=== PATIENT | male | born 1975 | race Caucasian/White ===

== ENCOUNTER 2023-11-07 07:39 | Outpatient (OUT) | payer BC, SELFPAY | END 2023-11-07 07:40 | disposition home or self-care (01) | LOC: PST 07:40 | PROVIDERS: Visit Provider Surgery | DX: Z01.818 Encounter for other preprocedural examination (principal); Z12.11 Encounter for screening for malignant neoplasm of colon ==

== ENCOUNTER 2023-11-15 06:47 | Day surgery (SDC) | payer BC, SELFPAY ==
--- NOTE | 2023-11-15 | OP_ITS ---
OPERATION DATE: 11/15/2023 PREOPERATIVE DIAGNOSIS: Colorectal screening. POSTOPERATIVE DIAGNOSIS: Normal colonoscopy to cecum. PROCEDURE: Colonoscopy to cecum. SURGEON: Edvin Kaur M.D. ANESTHESIA: Monitored anesthesia care. ESTIMATED BLOOD LOSS: Zero. INDICATIONS AND CONSENT: Patient is a 48-year-old male presents for colorectal screening. Indications, risks, benefits, alternatives of proceeding with colonoscopy were explained extensively to the patient, including the risks of bleeding, colon perforation or anesthetic complications. All of his questions were answered. Informed consent was obtained. PROCEDURE: Patient brought to the operating room, placed in the left lateral decubitus position. Monitored anesthesia care was provided. Rectal exam was performed which showed no masses or blood. The scope was inserted into the anal canal. Under direct visualization was advanced. With the aid of abdominal compression, it was advanced to the cecum where cecal markings were clearly identified. Upon withdrawal of the scope, mucosal surfaces were carefully examined. There was noted to be a good prep. There were no mass lesions or polyps. No inflammatory changes or ulcerations. No significant diverticulosis. The scope was retroflexed in the anal canal. There was no significant hemorrhoidal disease. Scope was then withdrawn. Patient tolerated procedure well, was sent to recovery room in good condition. follow up screening colonoscopy should be in 10 years. CC: Patient?s family physician KAMI
--- OUTSIDE RECORDS SUMMARY | 2023-11-15 06:52 | XMS_ITS | CCD ---
Author Organization [facility] [employer] [facility] [employer] [facility] Care Team Providers Care Family And Consumer Science Professor Name Role Phone Erin Vazquez Edin Primary Care Physician Edvin Hancock Attending Unavailable Juan Francisco SOSA Attending Unavailable Juan Francisco SOSA Attending Unavailable Edvin CORREIA Attending Unavailable Edvin Hancock Admitting Unavailable Edvin Hancock Attending Unavailable Allergies Allergy Classification Reported Allergen(s) Allergy Type Date of Onset Reaction(s) Facility (4 sources) Aspirin; Translations: [aspirin] Drug Allergy Eye swelling (finding) [facility] Medications Current Medications Medication Drug Class(es) Dates Sig (Normalized) Sig (Original) minocycline 50 mg oral capsule (1 source) Tetracycline-clas s Drug Start: 09-18-2023 take 1 capsule by mouth once daily as needed minocycline 50 mg Cap 50 mg = 1 cap(s), Oral, Daily, PRN rosacea, Refills(s) 0 Start Date: 09/18/23 Status: Ordered Multi Vitamins oral tablet (1 source) Start: 09-18-2023 take 1 tablet by mouth once daily Multi Vitamins oral tablet 1 tab(s), Oral, Daily, Refill(s) 0 Start Date: 09/18/23 Status: Ordered Problems Problem Classification Problem Date Documented Da te Episodic/Chronic Other gastrointestinal disorders (1 source) Irritable bowel syndrome 09-18-2023 Chronic Other inflammatory condition of skin (1 source) Rosacea 09-18-2023 Chronic Other nutritional; endocrine; and metabolic disorders (1 source) Overweight 09-13-2023 Episodic Other nutritional; endocrine; and metabolic disorders (1 source) Overweight in adulthood with body mass index of 25 or more but less than 30 09-18-2023 Episodic Other screening for suspected conditions (not mental disorders or infectious disease) (1 source) Screening for malignant neoplasm of colon done; Translations: [Encounter for screening for malignant neoplasm of colon] Onset: 09-18-2023 Episodic Other upper respiratory infections (1 source) Acute pharyngitis; Translations: [Acute pharyngitis, unspecified] Onset: 08-29-2023 Episodic Unclassified (1 source) Patient encounter status 09-18-2023 Viral infection (1 source) Viral disease; Translations: [Viral infection, unspecified] Onset: 08-29-2023 Episodic Results Test Name Value Interpretation Reference Range Facility Insurance Correspondenceon 0 11-03-2023 Insurance Correspondence [id number]# 1.00TIFF [facility] Ambulatory Visit Summaryon 0 09-18-2023 Ambulatory Visit Summary DAVIDA SHARMA :1975 Visit Date:09/18/2023 Ambulatory Visit Instructions Your Diagnosis Screening for malignant neoplasm of colon Your Care Team Attending Physician - MASOOD GO, Edvin Rae Primary Care Physician - Erin Vazquez DO This Is Your Medications List Contact prescribing physician if questions or concerns minocycline (minocycline 50 mg Cap) multivitamin (Multi Vitamins oral tablet) Procedures Performed Colonoscopy, Colonoscopy. Discharge Vitals Heart Rate (Peripheral) 88 Respiratory Rate 16 Blood Pressure 126/80 Height 178 cm Height 70 in Weight 87.1 kg Weight 191.62 lb BMI 27.49 Medications What How Much When Instructions Unchanged minocycline (minocycline 50 mg Cap) 1 Capsules By Mouth Every day as needed for rosacea Contact prescribing physician if questions or concerns Unchanged multivitamin (Multi Vitamins oral tablet) 1 Tablets By Mouth Every day Contact prescribing physician if questions or concerns Allergies aspirin (Eye swelling) Problems Ongoing - Any problem that you are currently receiving treatment for. BMI 27.0-27.9,adult IBS (irritable bowel syndrome) Overweight Rosacea Screening for malignant neoplasm of colon Patient Survey You may receive a survey via text or e-mail asking about your office visit. Please share your experience with us by completing your survey. We appreciate your feedback and thank you for choosing us for your care. [facility] Consent for Procedure/Surger yon 09-18-2023 Consent for Procedure/Surgery [id number] .00TIFF [facility] Ambulatory Visit Summaryon 0 08-29-2023 Ambulatory Visit Summary DAVIDA SHARMA :1975 Visit Date:08/29/2023 Ambulatory Visit Instructions Your Diagnosis Sore throat Your Care Team Attending Physician - Karissa FRIEDMAN, Edvin Rodriguez Primary Care Physician - Erin Vazquez DO Discharge Vitals Temperature (Oral) 36.5 ?C Heart Rate (Peripheral) 71 Blood Pressure 120/84 Height 178 cm Height 70 in Weight 87 kg Weight 191.4 lb BMI 27.46 Medications and Immunizations Administered Not Given influenza virus vaccine, inactivated, Postpone due to refusal SARS-CoV-2 mRNA (tozinameran 5y-11y) vac, Postpone due to refusal Allergies aspirin (Eye swelling) Patient Survey You may receive a survey via text or e-mail asking about your office visit. Please share your experience with us by completing your survey. We appreciate your feedback and thank you for choosing us for your care. [facility] Family Medicine Office/Clini c Noteon 08-29-2023 Family Medicine Office/Clinic Note Chief Complaint cough and congestion HPI Staff 48 year old male here for cough, congestion, and sore throat x 2 days. Pt states he has to drive with a coworker 6 hours and didn't want to give illness to him. Daughter at home with strep throat. History of Present Illness Reviewed and agree with above documented HPI by auditor medical claims. Patient is a 48-year-old male who comes in with complaint of cough, congestion, sore throat x 2 days. States the reason why he came in is because he is about to leave with a coworker to make a 6-hour drive each way. He does not want take the chance that he may be contagious. He states that his daughter is at home and she tested positive for strep. She has undergone treatment. He denies being around anyone who is sick. He denies fever, chills, shortness of breath, loss of taste or smell. He has taken Mucinex for his symptoms. Review of Systems PHQ Score Initial Depression Screen Score: 0 SCORE Physical Exam Vitals & Measurements T: 36.5 ?C(Oral) HR: 71(Peripheral) BP: 120/84 SpO2: 96% HT: 70 in HT: 178 cm WT: 87 kg WT: 191.4 lb BMI: 27.46 General: Well developed, well nourished, in no acute distress, does not appear ill or septic Eyes: Pupils equal, round, and reactive to light. Conjunctivae and sclerae normal, and extraocular movements intact Ears: No deformity or lesion of external ear. Canals and TM appear normal bilaterally. TM?s intact, not inflamed, with normal light reflex. Hearing grossly normal to conversational speech Nose: No deformity, discharge, inflammation, or lesions Mouth: Mucous membranes moist. Normal oropharynx. Posterior pharynx slightly erythemic without lesions or exudates. Tongue normal. Neck: no adenopathy Lungs: Normal respiratory effort and clear to auscultation Cardio: regular rate and rhythm, no murmur Abdomen: Soft, non-distended, non-tender Musculoskeletal: No deformity or scoliosis noted. Normal range of motion. Joints normal. No erythema, edema, effusion, or ecchymosis Extremity: No clubbing, cyanosis, edema, or deformity, with normal ROM in both upper and lower bilateral extremities Neurologic: Grossly normal Skin: No rashes, ulcerations, or suspicious lesions Mental Status: Alert and oriented x3. Normal speech and thought content, normal mood and affect Assessment/Plan Patient was swabbed for influenza A/B and strep. Results of swab were negative for all. Results were shared with patient. 1. Viral illness (B34.9: Viral infection, unspecified) Discussed exam and hx are consistent with viral illness. Advised of typical duration. Discussed antibiotics unfortunately do not treat viral illnesses, it will take time to run course- usually 7-14 days. Fluids/rest encouraged, PRN Tylenol/ibuprofen for any pain. May use saline nasal spray and Mucinex for symptomatic tx. Follow up with PCP if not improving over next 5-7 days or significantly worsening symptoms. Patient and/or parent verbalized understanding of tx plan. Ordered: Group A Strep by PCR 2. Sore throat (J02.9: Acute pharyngitis, unspecified) Rapid strep -. Given exam will send strep cx to confirm. No news is good news, if you do not hear from us, strep culture was Negative. If any GAS growth, will rx appropriate antibiotic and notify you. Discussed otherwise consistent with viral illness, typical duration 7-14 days. Fluids/rest, PRN Tylenol/ibuprofen for pain and/or fever. May use salt water gargles and OTC lozenges for pain. Fu with PCP if cx negative and not improving over next 5-7 days. Seek medical attention immediately for any increased difficulty swallowing, opening mouth, or difficulty managing oral secretions. Patient and/or parent verbalized understanding of tx plan. Ordered: Group A Strep by PCR Influenza Type A&B POC 79312 Rapid Strep POC 12294 Portions of this record may have been created with voice recognition artificial intelligence software, specifically [employer] and or [employer]. Occasional wrong-word or `zgthu-b-njne? substitutions may have occurred due to the inherent limitations of voice recognition and artificial intelligence software. Follow-up No qualifying data available Patient Education Pharyngitis, Mwyw-xo-Kfqx Viral Illness, Adult Problem List/Past Medical History Ongoing No qualifying data Historical No qualifying data Medications No active medications Allergies aspirin (Eye swelling) Social History Tobacco Never (less than 100 in lifetime) Tobacco Use:. Never Smokeless Tobacco Use:., 08/29/2023 Immunizations Vaccine Date Status Comments influenza virus vaccine, inactivated - Not Given Postpone due to refusal SARS-CoV-2 mRNA (tonaen 5y-11y) vac - Not Given Postpone due to refusal influenza virus vaccine, inactivated 03/05/2019 Recorded influenza virus vaccine, inactivated 03/22/2016 Recorded diphtheria/pertussis, acel/tetanus adult 03/10/2016 Recorded influenza, whole 03/25/2015 Recorded (more content not included)... Normal [facility] Comment on above: Result Comment: Elec tronically Signed By: Karissa FRIEDMAN, Edvin Rodriguez\.stacey\Date and Time Signed: 08/29/23 13:30 EDT Grp A Strp PCRon 08-29-2023 Grp A Strp Intrl Ctrl Pass Normal [facility] Comment on above: Performed By: #### 1 [id number] #### [facility] [address] [place] [address] S. pyogenes DNA ANNA+probe Ql (Throat) Negative Normal [facility] Comment on above: Result Comment: Test ing performed using DNA amplification. Performed By: #### 1 [id number] #### [facility] [address] [place] [address] Patient Educationon 08-29-19 Patient Education Infectious Disease Pharyngitis Pharyngitis is a sore throat (pharynx). This is when there is redness, pain, and swelling in your throat. Most of the time, this condition gets better on its own. In some cases, you may need medicine. What are the causes? ? An infection from a virus. ? An infection from bacteria. ? Allergies. What increases the risk? ? Being 5?24 years old. ? Being in crowded environments. These include: ? Daycares. ? Schools. ? Dormitories. ? Living in a place with cold temperatures outside. ? Having a weakened disease-fighting (immune) system. What are the signs or symptoms? Symptoms may vary depending on the cause. Common symptoms include: ? Sore throat. ? Tiredness (fatigue). ? Low-grade fever. ? Stuffy nose. ? Cough. ? Headache. Other symptoms may include: ? Glands in the neck (lymph nodes) that are swollen. ? Skin rashes. ? Film on the throat or tonsils. This can be caused by an infection from bacteria. ? Vomiting. ? Red, itchy eyes. ? Loss of appetite. ? Joint pain and muscle aches. ? Tonsils that are temporarily bigger than usual (enlarged). How is this treated? Many times, treatment is not needed. This condition usually gets better in 3?4 days without treatment. If the infection is caused by a bacteria, you may be need to take antibiotics. Follow these instructions at home: Medicines ? Take aesr-sfj-nupkjbo and prescription medicines only as told by your doctor. ? If you were prescribed an antibiotic medicine, take it as told by your doctor. Do not stop taking the antibiotic even if you start to feel better. ? Use throat lozenges or sprays to soothe your throat as told by your doctor. ? Children can get pharyngitis. Do not give your child aspirin. Managing pain To help with pain, try: ? Sipping warm liquids, such as: ? Broth. ? Herbal tea. ? Warm water. ? Eating or drinking cold or frozen liquids, such as frozen ice pops. ? Rinsing your mouth (gargle) with a salt water mixture 3?4 times a day or as needed. ? To make salt water, dissolve ??1 tsp (3?6 g) of salt in 1 cup (237 mL) of warm water. ? Do not swallow this mixture. ? Sucking on hard candy or throat lozenges. ? Putting a cool-mist humidifier in your bedroom at night to moisten the air. ? Sitting in the bathroom with the door closed for 5?10 minutes while you run hot water in the shower. General instructions ? Do not smoke or use any products that contain nicotine or tobacco. If you need help quitting, ask your doctor. ? Rest as told by your doctor. ? Drink enough fluid to keep your pee (urine) pale yellow. How is this prevented? ? Wash your hands often for at least 20 seconds with soap and water. If soap and water are not available, use hand engineer and geologist. ? Do not touch your eyes, nose, or mouth with unwashed hands. Wash hands after touching these areas. ? Do not share cups or eating utensils. ? Avoid close contact with people who are sick. Contact a doctor if: ? You have large, tender lumps in your neck. ? You have a rash. ? You cough up green, yellow-brown, or bloody spit. Get help right away if: ? You have a stiff neck. ? You drool or cannot swallow liquids. ? You cannot drink or take medicines without vomiting. ? You have very bad pain that does not go away with medicine. ? You have problems breathing, and it is not from a stuffy nose. ? You have new pain and swelling in your knees, ankles, wrists, or elbows. These symptoms may be an emergency. Get help right away. Call your local emergency services (911 in the [place] ? Do not wait to see if the symptoms will go away. ? Do not drive yourself to the hospital. Summary ? Pharyngitis is a sore throat (pharynx). This is when there is redness, pain, and swelling in your throat. ? Most of the time, pharyngitis gets better on its own. Sometimes, you may need medicine. ? If you were prescribed an antibiotic medicine, take it as told by your doctor. Do not stop taking the antibiotic even if you start to feel better. This information is not intended to replace advice given to you by your health care provider. Make sure you discuss any questions you have with your health care provider. Document Revised: 08/11/2021 Document Reviewed: 08/11/2021 Elsevier Patient Education ? 2022 [employer] Viral Illness, Adult Viruses are tiny germs that can get into a person's body and cause illness. There are many different types of viruses, and they cause many types of illness. Viral illnesses can range from mild to severe. They can affect various parts of the body. Short-term conditions that are caused by a virus include colds and the flu (influenza). Long-term conditions that are caused by a virus include herpes, shingles, and HIV (human immunodeficiency virus) infection. A few viruses have been linked to certain cancers (more content not included)... Normal [facility] 05-10-2023 Consent [id number] .00TIFF [facility] Registrationon 05-10-2023 Registration [id number]# 1.00TIFF [facility] Registrationon 11-30-2022 Registration [id number]# 1.00CD:127 [facility] 11-25-2022 Consent [id number]. 00CD:127 [facility] Vital Signs Date Time Vital Sign Value Performing Clinician Facility 09-18-2023 13:05-0400 Blood Pressure Location Edvin CORREIA [facility] 09-18-2023 13:05-0400 Diastolic blood pressure 80 mm[Hg] Edvin CORREIA [facility] 09-18-2023 13:05-0400 Heart rate 88 /min Edvin CORREIA [facility] 09-18-2023 13:05-0400 Respiratory rate 16 /min Edvin MASOOD [facility] 09-18-2023 13:05-0400 Systolic blood pressure 126 mm[Hg] Edvin GIRONAshleigh [facility] 08-29-2023 11:29-0400 Blood Pressure Location [facility] 08-29-2023 11:29-0400 Body temperature 97.7 [degF] [facility] 08-29-2023 11:29-0400 Diastolic blood pressure 84 mm[Hg] [facility] 08-29-2023 11:29-0400 Heart rate 71 /min [facility] 08-29-2023 11:29-0400 SaO2% (BldA) [Mass fraction] 96 % [facility] 08-29-2023 11:29-0400 Systolic blood pressure 120 mm[Hg] [facility] Encounters Encounter Date Encounter Type Care Provider Facility Start: 09-18-2023 End: 09-18-2023 ambulatory Edvin CORREIA Facility: [facility] Start: 09-18-2023 End: 09-18-2023 Patient encounter procedure Edvin CORREIA [facility] Start: 09-12-2023 ambulatory Edvin Hancock Facili ty:[facility] Start: 08-29-2023 End: 08-29-2023 ambulatory Edvin Hancock [place] Start: 08-29-2023 End: 08-29-2023 Lab Drop off Edvin Hancock [facility] Start: 08-29-2023 End: 08-29-2023 ambulatory Edvin Hancock Facility:[facility] Start: 08-29-2023 End: 08-29-2023 Patient encounter procedure [facility] Start: 05-10-2023 End: 05-10-2023 ambulatory [facility] Start: 11-25-2022 End: 11-25-2022 [facility] Procedures Date Procedure Procedure Detail Performing Clinician Colonoscopy Edvin CORREIA Immunizations Immunization Date Immunization Notes Care Provider Fa cility 03-05-2019 influenza virus vaccine, unspecified formulation [facility] 03-22-2016 influenza virus vaccine, unspecified formulation [facility] 03-10-2016 tetanus toxoid, reduced diphtheria toxoid, and acellular pertussis vaccine, adsorbed [facility] 03-25-2015 influenza, whole [facility] 03-21-2013 influenza virus vaccine, unspecified formulation [facility] NEGATED: Highlighted row has not occurred!08-29-2023 influenza virus vaccine, unspecified formulation [facility] NEGATED: Highlighted row has not occurred!08-29-2023 SARS-CoV-2 mRNA (tozinameran 5y-11y) vaccine [facility] Payers Date Payer Category Payer Unknown [id number] 2021 Self-pay 1975 Unknown [id number] [id number] [id number] 1975 Unknown [id number] [id number] [id number] 1975 Unknown [id number] 2.16.8 [id number] 1975 Unknown [id number] 2.16.8 [id number] 1975 Unknown [id number] 2.16.8 [id number] Social History Date Type Detail Facility Start: 08-29-2023 End: 09-18-2023 Tobacco smoking status Never smoked tobacco (finding) [facility] Tobacco smoking status Never [facility] Sex Assigned At Male [facility] Functional Status Date Assessment Result Facility 09-18-2023 Functional Status N/A [facility] 08-29-2023 Functional Status N/A [facility] Clinical Note 09-18-2023 Note Date & Type Note Facility 09-18-2023 Note Chief Complaint consultation for colonoscopy HPI Staff 48 year old male presents on self referral consultation for screening colonoscopy. Denies abdominal or rectal pain. No rectal bleeding or change in bowel habits. Denies nausea or vomiting. No unexplained weight loss. Last colonoscopy completed greater than 10 years ago. No known family history of colon cancer. History of Present Illness 48 yo male presents for colorectal screening; denies change in bms or blood in stools; no abdominal complaints; denies asa or NSAID use, no SBE prophylaxis; no abdominal operations, remote colonoscopy x2, over 20 years ago; wnl; no fmhx of GI malignancy or IBD; no tobacco use. Review of Systems PHQ Score Initial Depression Screen Score: 0 SCORE ROS - Provider Constitutional: no fever, no sweats, no weight loss. Eyes: no glasses, no blurred vision, no visual loss. ENMT: no dentures, no hoarseness, no swallowing difficulties, no hearing loss, no ear infection(s), no nose bleeds. Cardiovascular: normal blood pressure, no chest pain, regular heartbeat, no heart murmur. Respiratory: no shortness of breath, no cough, no asthma, no wheezing. Gastrointestinal: no nausea, no vomiting, no diarrhea, no constipation, no blood in stool, no change in bowel habits, no abdominal pain, no hepatitis. Genitourinary: no kidney stones, no urine infection, no dysuria. Musculoskeletal: no pain, no weakness. Skin: no changing moles, no rash, no skin lumps. Neurologic: no seizures, no epilepsy, no headache. Psychiatric: no emotional or psychiatric problem. Heme/Lymph: no bleeding problems, no anemia, no blood clots, no transfusions. Allergy/Immunologic: no swollen lymph nodes/glands, no IV drug abuse. Other: Additional ROS info: Except as noted in the above Review of Systems and in the History of Present Illness, all other systems have been reviewed and are negative or noncontributory. Physical Exam Vitals & Measurements HR: 88(Peripheral) RR: 16 BP: 126/80 HT: 70 in HT: 178 cm WT: 87.1 kg WT: 191.62 lb BMI: 27.49 HEENT: normal conjunctiva, sclera clear, no scleral icterus, EOM intact, PERRLA, oral mucosa moist without lesions. Neck: trachea midline, no mass, symmetric, no thyromegaly or nodules, no adenopathy Respiratory: lungs CTA, respirations non labored. Cardiovascular: regular rate and rhythm, no murmur, no pedal edema or varicosities. Gastrointestinal: soft, non distended, no tenderness, no masses, no palpable hernias, diastasis recti no, no hepatosplenomegaly; normal bs Lymphatic: no cervical adenopathy, no supraclavicular adenopathy. Musculoskeletal: normal gait, digits and nails without infection, nodes, cyanosis, clubbing. Skin: no rashes, no lesions, no ulcers, no subcutaneous nodules, induration. Psychiatric/Neuro: oriented to time, place, person, judgement normal, affect appropriate for age, insight intact, no focal deficits. Tests: , review of old records completed , Discussed surgical options, risks, and possible complications with patient. Assessment/Plan 1. Screening for malignant neoplasm of colon (Z12.11: Encounter for screening for malignant neoplasm of colon) plan colonoscopy under anesthesia, informed consent obtained. Follow-up No qualifying data available Problem List/Past Medical History Ongoing BMI 27.0-27.9,adult IBS (irritable bowel syndrome) Overweight Rosacea Screening for malignant neoplasm of colon Historical No qualifying data Procedure/Surgical History Colonoscopy, Colonoscopy. Medications minocycline 50 mg Cap, 50 mg= 1 cap(s), Oral, Daily, PRN Multi Vitamins oral tablet, 1 tab(s), Oral, Daily Allergies aspirin (Eye swelling) Social History Alcohol - Denies Alcohol Use, 09/18/2023 Substance Abuse - Denies Substance Abuse, 09/18/2023 Tobacco Never (less than 100 in lifetime) Tobacco Use:. Never Smokeless Tobacco Use:., 09/18/2023 Family History Diverticulitis of colon: Father. Heart disease: Father. Hypertension: Mother. Primary malignant neoplasm of prostate: Father. Immunizations Vaccine Date Status Comments influenza virus vaccine, inactivated - Not Given Postpone due to refusal SARS-CoV-2 mRNA (tozinameran 5y-11y) vac - Not Given Postpone due to refusal influenza virus vaccine, inactivated 03/05/2019 Recorded influenza virus vaccine, inactivated 03/22/2016 Recorded diphtheria/pertussis, acel/tetanus adult 03/10/2016 Recorded influenza, whole 03/25/2015 Recorded influenza virus vaccine, inactivated 03/21/2013 Recorded [facility] Comment on above: Result Comment: Elec tronically Signed By: MASOOD GO, Edvin Andino.br\Date and Time Signed: 09/18/23 13:29 EDT Hospital Discharge instructions 08-29-2023 Note Date & Type Note Facility 08-29-2023 Hospital Discharge instructions Patient Education 08/29/2023 13:30:28 Pharyngitis, Mezr-ym-Avcz Pharyngitis Pharyngitis is a sore throat (pharynx). This is when there is redness, pain, and swelling in your throat. Most of the time, this condition gets better on its own. In some cases, you may need medicine. What are the causes? An infection from a virus. An infection from bacteria. Allergies. What increases the risk? Being 5 24 years old. Being in crowded environments. These include: ?Daycares. ?Schools. ?Dormitories. Living in a place with cold temperatures outside. Having a weakened disease-fighting (immune) system. What are the signs or symptoms? Symptoms may vary depending on the cause. Common symptoms include: Sore throat. Tiredness (fatigue). Low-grade fever. Stuffy nose. Cough. Headache. Other symptoms may include: Glands in the neck (lymph nodes) that are swollen. Skin rashes. Film on the throat or tonsils. This can be caused by an infection from bacteria. Vomiting. Red, itchy eyes. Loss of appetite. Joint pain and muscle aches. Tonsils that are temporarily bigger than usual (enlarged). How is this treated? Many times, treatment is not needed. This condition usually gets better in 3 4 days without treatment. If the infection is caused by a bacteria, you may be need to take antibiotics. Follow these instructions at home: Medicines Take vhmd-byk-ngqocvg and prescription medicines only as told by your doctor. If you were prescribed an antibiotic medicine, take it as told by your doctor. Do not stop taking the antibiotic even if you start to feel better. Use throat lozenges or sprays to soothe your throat as told by your doctor. Children can get pharyngitis. Do not give your child aspirin. Managing pain To help with pain, try: Sipping warm liquids, such as: ?Broth. ?Herbal tea. ?Warm water. Eating or drinking cold or frozen liquids, such as frozen ice pops. Rinsing your mouth (gargle) with a salt water mixture 3 4 times a day or as needed. ?To make salt water, dissolve 1 tsp (3 6 g) of salt in 1 cup (237 mL) of warm water. ?Do not swallow this mixture. Sucking on hard candy or throat lozenges. Putting a cool-mist humidifier in your bedroom at night to moisten the air. Sitting in the bathroom with the door closed for 5 10 minutes while you run hot water in the shower. General instructions Do not smoke or use any products that contain nicotine or tobacco. If you need help quitting, ask your doctor. Rest as told by your doctor. Drink enough fluid to keep your pee (urine) pale yellow. How is this prevented? Wash your hands often for at least 20 seconds with soap and water. If soap and water are not available, use hand engineer and geologist. Do not touch your eyes, nose, or mouth with unwashed hands. Wash hands after touching these areas. Do not share cups or eating utensils. Avoid close contact with people who are sick. Contact a doctor if: You have large, tender lumps in your neck. You have a rash. You cough up green, yellow-brown, or bloody spit. Get help right away if: You have a stiff neck. You drool or cannot swallow liquids. You cannot drink or take medicines without vomiting. You have very bad pain that does not go away with medicine. You have problems breathing, and it is not from a stuffy nose. You have new pain and swelling in your knees, ankles, wrists, or elbows. These symptoms may be an emergency. Get help right away. Call your local emergency services (911 in the [place] Do not wait to see if the symptoms will go away. Do not drive yourself to the hospital. Summary Pharyngitis is a sore throat (pharynx). This is when there is redness, pain, and swelling in your throat. Most of the time, pharyngitis gets better on its own. Sometimes, you may need medicine. If you were prescribed an antibiotic medicine, take it as told by your doctor. Do not stop taking the antibiotic even if you start to feel better. This information is not intended to replace advice given to you by your health care provider. Make sure you discuss any questions you have with your health care provider. Document Revised: 08/11/2021 Document Reviewed: 08/11/2021 [employer] Patient Education 2022 [employer]UD[employer]. 08/29/2023 13:30:25 Viral Illness, Adult Viral Illness, Adult Viruses are tiny germs that can get into a person's body and cause illness. There are many different types of viruses, and they cause many types of illness. Viral illnesses can range from mild to severe. They can affect various parts of the body. Short-term conditions that are caused by a virus include colds and the flu (influenza). Long-term conditions that are caused by a virus include herpes, shingles, and HIV (human immunodeficiency virus) infection. A few viruses have been linked to certain cancers. What are the causes? Many types of viruses can cause illness. Viruses invade cells in your body, multiply, and cause the infected cells to work abnormally or . When these cells , they release more of the virus. When this happens, you develop symptoms of the illness, and the virus continues to spread to other cells. If the virus takes over the function of the cell, it can cause the cell to divide and grow out of control. This happens when a virus causes cancer. Different viruses get into the body in different ways. You can get a virus by: Swallowing food or water that has come in contact with the virus (is contaminated). Breathing in droplets that have been coughed or sneezed into the air by an infected person. Touching a surface that has been contaminated with the virus and then touching your eyes, nose, or mouth. Being bitten by an insect or animal that carries the virus. Having sexual contact with a person who is infected with the virus. Being exposed to blood or fluids that contain the virus, either through an open cut or during a transfusion. If a virus enters your body, your body's defense system (immune system) will try to fight the virus. You may be at higher risk for a viral illness if your immune system is weak. What are the signs or symptoms? You may have these symptoms, depending on the type of virus and the location of the cells that it invades: Cold and flu viruses: ?Fever. ?Headache. ?Sore throat. ?Muscle aches. ?Stuffy nose (nasal congestion). ?Cough. Digestive system (gastrointestinal) viruses: ?Fever. ?Pain in the abdomen. ?Nausea. ?Diarrhea. Liver viruses (hepatitis): ?Loss of appetite. ?Tiredness. ?Skin or the white parts of your eyes turning yellow (jaundice). Brain and spinal cord viruses: ?Fever. ?Headache. ?Stiff neck. ?Nausea and vomiting. ?Confusion or sleepiness. Skin viruses: ?Warts. ?Itching. ?Rash. Sexually transmitted viruses: ?Discharge. ?Swelling. ?Redness. ?Rash. How is this diagnosed? This condition may be diagnosed based on one or more of the following: Symptoms. Medical history. Physical exam. Blood test, sample of mucus from your lungs (sputum sample), stool sample, or a swab of body fluids or a skin sore (lesion). How is this treated? Viruses can be hard to treat because they live within cells. Antibiotic medicines do not treat viruses because these medicines do not get inside cells. Treatment for a viral illness may include: Resting and drinking plenty of fluids. Medicines to relieve symptoms. These can include neam-wim-skuczxz medicine for pain and fever, medicines for cough or congestion, and medicines to relieve diarrhea. Antiviral medicines. These medicines are available only for certain types of viruses. Some viral illnesses can be prevented with vaccinations. A common example is the flu shot. Follow these instructions at home: Medicines Take coly-zao-tdvigur and prescription medicines only as told by your health care provider. If you were prescribed an antiviral medicine, take it as told by your health care provider. Do not stop taking the antiviral even if you start to feel better. Be aware of when antibiotics are needed and when they are not needed. Antibiotics do not treat viruses. You may get an antibiotic if your health care provider thinks that you may have, or are at risk for, a bacterial infection and you have a viral infection. ?Do not ask for an antibiotic prescription if you have been diagnosed with a viral illness. Antibiotics will not make your illness go away faster. ?Frequently taking antibiotics when they are not needed can lead to antibiotic resistance. When this develops, the medicine no longer works against the bacteria that it normally fights. General instructions Drink enough fluids to keep your urine pale yellow. Rest as much as possible. Return to your normal activities as told by your health care provider. Ask your health care provider what activities are safe for you. Keep all follow-up visits as told by your health care provider. This is important. How is this prevented? To reduce your risk of viral illness: Wash your hands often with soap and water for at least 20 seconds. If soap and water are not available, use hand engineer and geologist. Avoid touching your nose, eyes, and mouth, especially if you have not washed your hands recently. If anyone in your household has a viral infection, clean all household surfaces that may have been in contact with the virus. Use soap and hot water. You may also use bleach that you have added water to (diluted). Stay away from people who are sick with symptoms of a viral infection. Do not share items such as toothbrushes and water bottles with other people. Keep your vaccinations up to date. This includes getting a yearly flu shot. Eat a healthy diet and get plenty of rest. Contact a health care provider if: You have symptoms of a viral illness that do not go away. Your symptoms come back after going away. Your symptoms get worse. Get help right away if you have: Trouble breathing. A severe headache or a stiff neck. Severe vomiting or pain in your abdomen. These symptoms may represent a serious problem that is an emergency. Do not wait to see if the symptoms will go away. Get medical help right away. Call your local emergency services (911 in the [place] Do not drive yourself to the hospital. Summary Viruses are types of germs that can get into a person's body and cause illness. Viral illnesses can range from mild to severe. They can affect various parts of the body. Viruses can be hard to treat. There are medicines to relieve symptoms, and there are some antiviral medicines. If you were prescribed an antiviral medicine, take it as told by your health care provider. Do not stop taking the antiviral even if you start to feel better. Contact a health care provider if you have symptoms of a viral illness that do not go away. This information is not intended to replace advice given to you by your health care provider. Make sure you discuss any questions you have with your health care provider. Document Revised: 09/28/2020 Document Reviewed: 03/24/2020 [employer] Patient Education 2022 [employer]. [facility] Evaluation + Plan note Note Date & Type Note Facility Evaluation + Plan note No data available for this section [facility] Hospital Discharge instructions Note Date & Type Note Facility Hospital Discharge instructions No data available for this section [facility] Progress note Note Date & Type Note Facility Progress note No data available for this section [facility] Summary Purpose Family History No Family History Records Found Advance Directives No Advanced Directives Records Found Additional Source Comments Patient Care team informatio n (unrecognized section and content) Personnel Name: Erin Vazquez DO Address: Address: [facility] Jim Ramos Arian [address] Personnel Name: Erin Vazquez DO Address: Address: [facility] Jim Ramos [address] Personnel Name: Erin Vazquez DO Address: Address: [facility] Jim Ramos [address] (unrecognized sect ion and content) No Status Records Found INFORMATION SOURCE (unrecogn ized section and content) DATE CREATED AUTHOR 11/04/2023 [facility] FOR RECORDS PERTAINING TO PATIENTS WHO ARE OR HAVE BEEN ENROLLED IN A CHEMICAL DEPENDENCY/SUBSTANCEABUSE PROGRAM, SOME INFORMATION MAY BE OMITTED. This clinical summary was aggregated from multiple sources. Caution should be exercised in using it in the provision of clinical care. This summary normalizes information from multiple sources, and as a consequence, information in this document may materially change the coding, format and clinical context of patient data. In addition, data may be omitted in some cases. CLINICAL DECISIONS SHOULD BE BASED ON THE PRIMARY CLINICAL RECORDS. [employer]. provides no warranty or guarantee of the accuracy or completeness of information in this document.
[2023-11-15 07:00] VITALS: BP 132/72; PULSE 82; TEMP 36.2; O2SAT 98; BMI 25.9
[2023-11-15] MEDS: LACTATED RINGER'S SOLUTION 1,000 ML 50 ML IV (07:14)
[2023-11-15 08:25] VITALS: BP 94/43; PULSE 56; TEMP 36.6; O2SAT 98
[2023-11-15 08:40] VITALS: BP 100/81; PULSE 60; O2SAT 98
[2023-11-15 08:55] VITALS: BP 145/78; PULSE 50; O2SAT 99
== END 2023-11-15 08:55 | disposition home or self-care (01) ==
PROVIDERS: PCP Family Medicine; Visit Provider Surgery
PROC: (CPT 00812; principal; 2023-11-15 07:55)
DX: Z12.11 Encounter for screening for malignant neoplasm of colon (principal)
CPT/HCPCS: 00812; 45378; J2704